=== PATIENT | female | born 1975 | race Caucasian/White ===

== ENCOUNTER → 2017-08-25 08:48 | Outpatient (CLI) | payer BC, SELFPAY ==
[2017-08-25 12:37] LABS: Absolute Lymphocyte Count 1.68 X10^3/ul (0.83-4.51); Absolute Neutrophil Count 3.6 X10^3/uL (2.0-7.7); Basophil# 0.03 X10^3/uL; Basophil% 0.5 % (0-1); Eosinophil# 0.48 X10^3/uL; Eosinophils% 7.7 % (0-5); Hematocrit 38.8 % (37-47); Hemoglobin 12.8 g/dl (12.0-15.0); Lymphocyte # 1.68 X10^3/ul (4.0); Lymphocyte % 27.1 % (19-41); Mean Corpuscular Hgb 27.9 pg (27.0-32.0); Mean Corpuscular Volume 84.5 fL (81-99); Mean Platelet Vol. 10.8 fl (6.2-12.0); Monocyte# 0.42 X10^3/uL; Monocyte% 6.8 % (0-10); Neutrophil # 3.58 X10^3/uL (2.7-7.7); Neutrophil % 57.7 % (47-70); Platelet Count 219 K/mm3 (150-450); RBC Distribution Width CV 12.8 % (11.6-14.6); RBC Distribution Width SD 39.2 fl (35.1-43.9); Red Blood Count 4.59 M/mm3 (4.2-5.4); White Blood Count 6.2 K/mm3 (4.4-11.0)
[2017-08-25 12:40] LABS: POSITIVE COUNT NO; POSITIVE DIFFERENTIAL NO; POSITIVE MORPHOLOGY NO
[2017-08-25 12:56] LABS: Vitamin B12 814 pg/mL (211-911); Vitamin D,25 Hydroxy 34.3 ng/mL (29.95-100.01)
[2017-08-25 12:59] LABS: ALB/GLOB Ratio 0.8 RATIO (0.9-2.4); AST(SGOT) 22 U/L (15-37); Alanine Aminotransfer ALT/SGPT 31 U/L (13-56); Albumin, Serum 3.2 g/dL (3.2-5.0); Alkaline Phosphatase 51 U/L (45-117); Anion Gap 8 (5-15); BUN 12 mg/dL (7-18); BUN/Creat Ratio 11.9 RATIO (10-20); Calcium,Total 8.7 mg/dL (8.5-10.1); Chloride 103 mmol/L (98-107); Cholesterol 156 mg/dL (200); Creatinine, Serum 1.01 mg/dL (0.55-1.02); EST Glomerular Filtration Rate 64 mL/min (>60); Est Glom Filt Rate - Afr Amer 78 mL/min (>60); Globulin 3.8 g/dL (2.2-4.2); Glucose 89 mg/dL (74-106); High Density Lipoprotein 55 mg/dL; Potassium 4.1 mmol/L (3.5-5.1); Sodium Level 139 mmol/L (136-145); T4 Free Direct 1.07 ng/dL (0.76-1.46); Thyroid Stim Hormone (TSH) 2.92 uIU/mL (0.358-3.74); Triglycerides 103 mg/dL; Very Low Density Lipoprotein 21 mg/dL (5-40)
== END ==
PROVIDERS: Family Provider Family Medicine; PCP Family Medicine; Visit Provider Family Medicine
DX: Z00.00 Encounter for general adult medical examination without abnormal findings (principal); E78.5 Hyperlipidemia, unspecified; E55.9 Vitamin D deficiency, unspecified; E53.8 Deficiency of other specified B group vitamins; R53.83 Other fatigue
CPT/HCPCS: 36415; 80053; 80061; 82306; 82607; 84439; 84443; 85025

== ENCOUNTER → 2018-03-10 11:45 | Outpatient (CLI) | payer BC, SELFPAY ==
--- NOTE | 2018-03-10 11:48 | BI_ITS ---
MAMMOGRAPHY - BILATERAL SCREENING REASON FOR EXAM: Female, 42 years old. Routine annual screening examination. PERTINENT HISTORY: Mother with breast cancer. Aunt with breast cancer. TECHNIQUE: Digital bilateral breast piotr (3D mammographic acquisition) in the CC and MLO projections. 2-D mediolateral oblique (MLO) and craniocaudad (CC) views of both breasts were obtained. CAD: Full Field Digital Mammography with Computer Added Detection was performed. COMPARISON: Comparison is made with prior study dated March 05, 2017. FINDINGS: Breast Composition: The breasts are heterogeneously dense, which may obscure small masses. There are no dominant masses or suspicious calcifications. Stable small bilateral axillary lymph nodes. No other significant abnormalities are identified. There has been no significant change since the prior study. BI/SCREENING MAMM (CAD), BILAT IMPRESSION: Stable bilateral screening mammogram. Yearly follow-up mammogram recommended. (A) ASSESSMENT CATEGORY: BIRADS Category 2: Benign. A letter regarding these results will be sent to the patient by the facility within 30 days. Approximately 10% of breast cancers are not detected by mammography. A normal mammogram should not delay biopsy of a clinically suspicious abnormality. [id number] Electronically Signed: Rene Feldman MD at 12:51 EDT Tel [phone], Service support ,
== END ==
PROVIDERS: Family Provider Family Medicine; PCP Family Medicine; Visit Provider Obstetrics & Gynecology
DX: Z12.31 Encounter for screening mammogram for malignant neoplasm of breast (principal)
CPT/HCPCS: 77063; 77067

== ENCOUNTER → 2018-10-02 | Outpatient (CLI) | payer BC, SELFPAY ==
[2018-10-02 12:51] LABS: Absolute Neutrophil Count 3.9 X10^3/uL (2.0-7.7); Basophil# 0.06 X10^3/uL; Basophil% 0.9 % (0-1); Eosinophil# 0.36 X10^3/uL; Eosinophils% 5.4 % (0-5); Hematocrit 39.6 % (37-47); Lymphocyte % 28.7 % (19-41); Mean Corp Hgb Conc 32.8 g/gl (32-36); Mean Corpuscular Volume 85.3 fL (81-99); Mean Platelet Vol. 10.4 fl (6.2-12.0); Monocyte# 0.39 X10^3/uL; Monocyte% 5.9 % (0-10); Neutrophil # 3.92 X10^3/uL (2.7-7.7); Neutrophil % 59.1 % (47-70); Platelet Count 233 K/mm3 (150-450); RBC Distribution Width CV 12.5 % (11.6-14.6); RBC Distribution Width SD 38.7 fl (35.1-43.9); Red Blood Count 4.64 M/mm3 (4.2-5.4); White Blood Count 6.6 K/mm3 (4.4-11.0)
[2018-10-02 12:55] LABS: POSITIVE COUNT NO; POSITIVE DIFFERENTIAL NO; POSITIVE MORPHOLOGY NO
[2018-10-02 13:01] LABS: AST(SGOT) 24 U/L (15-37); Alanine Aminotransfer ALT/SGPT 37 U/L (13-56); Albumin, Serum 3.5 g/dL (3.2-5.0); Alkaline Phosphatase 59 U/L (45-117); Anion Gap 5 (5-15); BUN 18 mg/dL (7-18); BUN/Creat Ratio 17.3 RATIO (10-20); Calcium,Total 8.6 mg/dL (8.5-10.1); Chloride 107 mmol/L (98-107); Cholesterol 158 mg/dL (200); Creatinine, Serum 1.04 mg/dL (0.55-1.02); EST Glomerular Filtration Rate 62 mL/min (>60); Est Glom Filt Rate - Afr Amer 75 mL/min (>60); Globulin 3.5 g/dL (2.2-4.2); Glucose 82 mg/dL (74-106); High Density Lipoprotein 70 mg/dL; Potassium 4.2 mmol/L (3.5-5.1); Sodium Level 140 mmol/L (136-145); Triglycerides 81 mg/dL; Very Low Density Lipoprotein 16 mg/dL (5-40)
[2018-10-02 13:10] LABS: Vitamin B12 751 pg/mL (211-911); Vitamin D,25 Hydroxy 24.9 ng/mL (29.95-100.01)
== END | disposition home or self-care (01) ==
LOC: LAB.FUTURE 10:05
PROVIDERS: Family Provider Family Medicine; PCP Family Medicine; Visit Provider Family Medicine
DX: Z00.00 Encounter for general adult medical examination without abnormal findings (principal); E53.8 Deficiency of other specified B group vitamins; E55.9 Vitamin D deficiency, unspecified
CPT/HCPCS: 36415; 80053; 80061; 82306; 82607; 85025

== ENCOUNTER → 2018-12-25 | Outpatient (CLI) | payer BC, SELFPAY ==
[2019-01-01 12:39] LABS: HPV Reflexed? NOT INDICATED
== END | disposition home or self-care (01) ==
LOC: LABSPEC 13:31
PROVIDERS: Visit Provider Obstetrics & Gynecology
DX: Z12.4 Encounter for screening for malignant neoplasm of cervix (principal)
CPT/HCPCS: 88175; G0145

== ENCOUNTER 2019-03-01 06:20 | Day surgery (SDC) | payer BC, SELFPAY ==
--- NOTE | 2019-02-24 15:39 | EKG12_ITS ---
Test Reason : Blood Pressure : / mmHG Vent. Rate : 081 BPM Atrial Rate : 079 BPM P-R Int : 142 ms QRS Dur : 092 ms QT Int : 374 ms P-R-T Axes : 052 038 033 degrees QTc Int : 434 ms Normal sinus rhythm with sinus arrhythmia Low voltage QRS Borderline ECG Confirmed by KIM PAZ [id number]), telegraph editor ZIGGY ACOSTA ([id number]) on 03/01/2019 2:02:52 PM Referred By: Ross Owusu Confirmed By:KIM PAZ
[2019-02-24 16:20] LABS: Hematocrit 38.9 % (37-47); Hemoglobin 13.2 g/dL (12.0-15.0); Mean Corp Hgb Conc 33.9 g/dL (32-36); Mean Corpuscular Hgb 28.5 pg (27.0-32.0); Mean Platelet Vol. 10.3 fl (6.2-12.0); Platelet Count 244 K/mm3 (150-450); RBC Distribution Width CV 11.9 % (11.6-14.6); RBC Distribution Width SD 35.9 fl (35.1-43.9); Red Blood Count 4.63 M/mm3 (4.2-5.4); White Blood Count 7.8 K/mm3 (4.4-11.0)
[2019-02-24 16:22] LABS: Prothrombin Time (Protime)PT. 13.4 SECONDS (11.7-14.9)
[2019-02-24 16:23] LABS: Partial Thromboplast Time 25.5 Seconds (24.1-36.2)
[2019-02-24 17:21] LABS: AST(SGOT) 27 U/L (15-37); Alanine Aminotransfer ALT/SGPT 50 U/L (13-56); Albumin, Serum 3.5 g/dL (3.2-5.0); Alkaline Phosphatase 54 U/L (45-117); Bilirubin, Direct 0.11 mg/dL (0.00-0.30); Creatinine, Serum 1.12 mg/dL (0.55-1.02); EST Glomerular Filtration Rate 57 mL/min (>60); Est Glom Filt Rate - Afr Amer 68 mL/min (>60); Globulin 3.5 g/dL (2.2-4.2)
--- NOTE | 2019-02-28 16:02 | HP.PCM_ITS ---
History and Physical Date of Admission: 03/01/19 Surgical History and Physical Jasmyn Crowder, a 43 year old female 2 0 0 0 2, presents for Robotic hysterectomy and bilateral salpingo-oophrectomy on March 01, 2019 at 11:15. -- Dysmenorrhea, Pelvic Pain -- Menses continue to be heavy and painful. Tried OCPs which do not help. Discussed option for Implanon or progesterone only method and she is not interested in any of these methods. Pelvic ultrasound is normal. UTERUS: 8 x 4.7 x 4.9 cm. Prominent scar along lower uterine segment (able to see prior uterine incision on sono;ENDOMETRIAL ECHO: 3 mm; R OVARY: 2.1 x 1.7 x 1.8 cm.;L OVARY: 2.4 x 1.5 x 1.7 cm. After L/S menses still really miserable. She just does not know what to do. Menses painful and feels pressure. She also states intercourse is painful. She is concerned with the pain and the irregular periods. Dysmenorrhea which began months ago. It occurs intercourse, menses. It is located in the vagina.; It is located in the Left Lower Back Pain. Jasmyn characterizes the quality cramping.; Jasmyn characterizes the quality sharp.; Jasmyn characterizes the quality stabbing. Severity is severe; It is aggravated by menses; It is aggravated by intercourse. MEDICATIONS HISTORY: Current medications prescribed by our practice are: 1. PRIYANKA (28) 3 mg-0.02 mg tablet, 1 daily Patient is also takin. buspirone 10 mg tablet 2. Wellbutrin XL 150 mg 24 hr tablet, extended release, bid ALLERGIES: penicillin G potassium, erythromycin, Erythromycin Base, Generalized rash, Doxycycline, Vomiting, Bactrim and Stomach ache Infections - Chicken pox Illnesses - depression/stress Accidents - no injuries of consequence Hospitalizations - Childbirth Review of Systems: GENERAL - Denies fever, or chills SKIN - Denies skin changes EYES - Denies visual changes EARS - Denies difficulty hearing NOSE - Denies nasal congestion or bleeding MOUTH - Denies sore throat or difficulty swallowing NECK - Denies pain or swelling RESPIRATORY - Denies shortness of breath or wheezing CARDIOVASCULAR - Denies palpitations or chest pain GASTROINTESTINAL - Denies nausea, vomiting, diarrhea, constipation GENITOURINARY - Denies dysuria, frequency of urination, incontinence of urine MUSCULOSKELETAL - Denies joint or muscle pain NEUROLOGICAL - Denies localized numbness or weakness PSYCHIATRIC - Denies depression or anxiety ENDOCRINE - Denies heat or cold intolerance, weight loss or gain HEMATO-IMMUNOLOGIC - Denies excessive bleeding with cuts SOCIAL HISTORY: Alcohol Use - denies use Smoking - denies use Diet - no special diet Lifestyle - high stress lifestyle Exercise - none Seat Belt Use - always Employer - [employer] Job Description - [employer] Illicit Drug Use - denies use of street drugs Sexual Activity - but not much x2 q month Residence - owns a home Place of - [facility] Hours Worked - 40 hours per week Spouse-Sig Other Name - Garrett Spouse-Sig Other Occupation - Inspector Aide, [employer] Children Name(s) - cydney knowlesob Control - BTO FAMILY HISTORY: Family history of Cervical cancer and DM II. Paternal Grandfather: Heart Disease and Hypertension. Maternal Aunt: hysterectomy for cervical cancer. MENSTRUAL HISTORY: LMP Known?- Irregular cycles Amount/Duration - 7-10 days, Regularity - irregular, Frequency - variable days, LMP - 02/01/19, Age Onset Menarche - 14 PAST PREGNANCIES: Total Pregnancies - 2; Full Term Pregnancies - 2; Premature - 0; Abortions, Induced - 0; Abortions, Spontaneous - 0; Ectopics - 0; Multiple Births - 0; Living Children - 2 SURGICAL HISTORY: 1. , 1996 2. 05/22/2000 ; Jacqui Saldivar M.D. 3. 07/17/2003 Carpal Tunnel surgery R and L 4. 04/28/2012 dx laparoscopy, Lap BTO, Lysis of adhesions ; Jacqui Saldivar M.D. PHYSICAL EXAM BP- 120/80 Sitting, Right arm, large cuff Temp- 99.3 Taken Orally Weight- 211.57035 lbs Height- 62.00 inch BMI:38.71 CONSTITUTIONAL - NAD, well nourished, and well developed HEENT - Normocephalic, PERRLA, EOMI NECK - no nuchal rigidity LUNGS - clear to auscultation CARDIAC - normal s1, normal s2, no s3 BREAST - no dominant masses, no tenderness, no axillary adenopathy, no nipple discharge and no skin changes ABDOMEN - no masses, no tenderness EXTREMITIES - No edema or calf tenderness NEUROLOGICAL - Cranial nerves II-XII grossly intact PSYCHIATRIC - A and O to time, place, person, mood and affect External Genital Vagina - non-tender without lesions Urethra/Urethral Meatus - non-tender Bladder - non-tender Vagina - no palpable lesions and pain on palpation Cervix - without cervical motion tenderness and has normal size and features without evident lesions Uterus - normal size, mobile and tenderness Adnexa - clear without massess or tenderness ASSESSMENT/PLAN: Dysmenorrhea (Painful Menses), Pelvic And Perineal Pain, Pelvic Pain and Unspec Continued pain on Priyanka. Reviewed diff dx and offered hysterectomy for persistent pelvic pain unresponsive to OCP, trial of medical suppression of pain; Prior L/S neg for endometriosis. Suspect adenomyosis as source of central pelvic pain worse around time of period, but present throughout month. May consider trial of DepoLupron: declines this. Prior C/S deliveries. Advised of options for surgery: HARSHAL vs robotic assisted vaginal hysterectomy. Recommended Robotic hysterectomy for better, less painful recovery. [employer] Brochure given to read and consider. She is ready now to proceed with Robotic hysterectomy. Prior BTO for contraception. Plan RAVH/BSO. Discussed RBAs including need for HRT ongoing and all questions answered.
[2019-03-01] VITALS (14 sets, daily range): BP systolic 103–133; BP diastolic 65–91; PULSE 71–91; RESP 16–18; TEMP 36–37.2; O2SAT 95–100; BMI 36.8
[2019-03-01 06:46] LABS: Internal QC Validated? YES +Cl - CLEAR BKGD; Pregnancy, Urine Negative Negative
[2019-03-01] MEDS: Lactated Ringers 1,000 ML 100 ML IV ×3 (07:00→13:40)
--- NOTE | 2019-03-01 08:30 | HYST_PTH ---
PATIENT: TERRELL BARTH LOC: [facility] [place] U#:[id number] AGE/SX: 43/F ROOM: RE03/01/[address]: Dr. Ross Owusu MD : [id number] BED: DIS: 03/02/2019 SPEC #: [id number] RECD: 03/01/19 13:58 STATUS: LATIA REShruthi #: [id number] TRISH: 03/01/19 08:[address]: Ross Owusu DEPT: SURGICAL PATHOLOGY RECD BY: Robert Remy ENTERED: 03/01/19 14:07 SP TYPE: HYSTERECT OTHR DR: Dr. Brendon Murphy, DO Tissues: Uterus, NOS Procedures: Surgery Specimen Level V HEADER OPERATION: Robotic-assisted vaginal hysterectomy, right salpingo-oophorectomy PRE-OP DIAGNOSIS: Dysmenorrhea and pelvic pain TISSUE SUBMITTED: Uterus, cervix, bilateral fallopian tubes, right ovary MICROSCOPIC DIAGNOSIS Uterus, hysterectomy: Cervix - mild chronic inflammation. Endometrium - weakly proliferative endometrium. Myometrium - adenomyosis and leiomyoma. Right fallopian tube - no pathologic change. Left fallopian tube - tubo-ovarian adhesions and paratubal cyst. Left ovary - follicular cysts and corpora albicantia. AM:josselin 03/02/19 MICROSCOPIC DESCRIPTION Slides are reviewed. GROSS DESCRIPTION Received in fixative is one container labeled with the patient's name and designated uterus. The specimen consists of a uterus with attached right and left fallopian tubes and left ovary. The uterus with cervix measures 9 x 5 x 4.5 cm and weighs 85 gm. The ectocervix is unremarkable. The cervical os is oval in contour. The endocervical canal measures 4.5 cm in length and is grossly unremarkable. The triangular endometrial cavity measures 3.6 x 3.2 cm. The velvety, light clinton endometrium measures up to 0.2 cm in thickness. The myometrium measures 2 cm in average thickness and contains a clinton subserosal nodule measuring 0.6 cm and grossly consistent with leiomyoma. The right fallopian tube measures 5.5 cm in length and 0.5 cm in average diameter. A normal fimbriated end is present. A Filshie type clip is noted to be intact. The left fallopian tube is similar in appearance measuring 4 x 0.5 cm. It is adherent to the smooth glistening pink-clinton ovary measuring 2.5 x 2 x 1.5 cm. Pest Control Supervisor sections are submitted in nine cassettes as follows: 1 - anterior cervix, 2 - posterior cervix, 3 & 4 - anterior uterine wall, 5 & 6 - posterior uterine wall (#6 has myometrial nodule), 7 - right fallopian tube, 8 & 9 - left ovary and adherent fallopian tube. / AM:josselin 03/01/19 TC:5 CPT: 21982
--- NOTE | 2019-03-01 09:10 | PCM.OPRPT ---
Report of Operation Date of Procedure: 03/01/19 Pre-Operative Diagnosis: Dysmenorrhea and Pelvic Pain Post-Operative Diagnosis: Dysmenorrhea and Pelvic Pain Surgery/Procedure Performed:: Robotic Assisted Vaginal Hysterectomy, Right Salpingo-Oophorectomy, Left Salpingectomy Description of Surgical Findings:: Inflamed 8 cm uterus with normal-appearing fallopian tubes and ovaries senior security engineer: Julian Moyer Type of Anesthesia:: General - Endotracheal Anesthesiologist: Komal Cornell Specimen's removed: Uterus, right fallopian tube and ovary, left fallopian tube Drains: Schilling to straight drain Estimated Blood Loss (mL): Minimal Fluids Replaced: Crystalloid Description of Procedure: Surgeon: Ross Owusu MD, FACOG Indication: This is a 43 year old patient who has been having problems with dysmenorrhea and pelvic pain. Extensive conservative measures have not been helpful. The patient has been counseled regarding the risks, benefits and alternatives of this procedure including the possibility of bleeding, infection, and injury to surrounding structures such as bowel bladder and all questions were answered. She understands that if BSO is needed that she will need to be on HRT for an indefinite period of time. Procedure: Pt taken to the operating room where, after induction of general anesthesia, the patient was prepped and draped in the usual sterile fashion and placed on a non-slip Huggy-u-vac device. Trendelenburg test was satisfactory. Bladder was drained of urine with a Schilling catheter which was left in place. Anterior cervix grasped and cervix was dilated to about 3-4 mm. Uterus sounded to 8 cms. 0-Vicryl suture was placed at the 3:00 and 9:00 position of the cervix. A small Advincula Mutuel Department Manager Uterine Manipulator was then placed in the uterus and attention was turned to the laparoscopic portion of the procedure. Ropivocaine 0.5% was injected approximately 2-3 cm superior to the umbilicus and an 8 mm robotic camera port was introduced directly with intraperitoneal placement confirmed with CO2 insufflation. 8 mm robotic side ports were introduced under direct visualization approximately 10-11 cm lateral and 2 cm inferior to the umbilical port. A 5 mm left upper quadrant port was introduced and airseal insufflation with CO2 was started. The above findings were noted. Robot was docked without difficulty and attention turned to the robotic portion of the procedure. Approximately 30 cc of Ropivicaine was used. Right infundibulopelvic ligaments and left mesosalpinx were ligated with 35 vann bipolar coagulation to the level of the round ligament. The posterior aspect of the cervix was identified and then opened for about 1 cm using 25 watt monopolar cautery identifying the uterine manipulating device which had been placed vaginally. Bladder flap was opened and divided to the level of the round ligaments using monopolar cautery. Progressive bites were then ligated on each side of the cervix with 35 vann bipolar cautery to the uterine arteries. The anterior vaginal mucosa was entered and cervix circumscribed with monopolar cautery. Uterus and attached tubes and right ovary were removed through the vagina. Vaginal cuff was closed first with 0-Vicryl Christopher stitches placed at each angle followed by closure of the mid-cuff with 0-Monocryl V-lock suture in two layers. Pelvis was copiously irrigated with saline and the right ureter was noted to peristalse. Robot was undocked and trocars were removed with as much gas as possible. Incisions were closed with 4-0 Monocryl subcuticular sutures and incisions covered with steri-strips. The patient tolerated the procedure well and was taken to the recovery room in satisfactory condition. Sponge, instruments and needle counts were all correct. There were no apparent complications of the surgery. Ancef 2 gms IV was given prior to the procedure. Estimated Blood Loss: Minimal Specimen to Pathology: Uterus and right fallopian tube and ovary and left fallopian tube Grafts/Implants Used: None - Complications None - Admit VTE Documentation VTE Present on Admission: Yes VTE Mechan Device Prophylaxis: SCD's VTE Pharm Prophylaxis ordered?: Yes
[2019-03-01] MEDS: Cefazolin 2 GM in 0.9% Normal Saline 100 ML IV (09:14)
--- NOTE | 2019-03-01 09:15 | DCINST_ITS ---
Discharge Diet: No Restrictions Discharge Activity: Return to Normal Activity, May Not Drive - while taking narcotic pain medications., May Shower, May Take a Tub Bath May resume sexual activity in: 6-8 weeks Call your doctor if your incision/area has: Continuous Slow Oozing, Sudden Inc reased Bleeding, Increased Pain/ Swelling, Increased Redness, Foul Smelling Discharge Call your doctor if you observe: Fever of 101 or Higher, Inability to urinate, Inability to have a bowel movement, Using more than one pad per hour Allergies/Adverse Reactions: Allergies erythromycin base [From E.E.S.] Allergy (Verified 03/01/19 06:44) Rash Penicillins Allergy (Verified 03/01/19 06:44) Rash acetaminophen [From Vicodin] Adverse Reaction (Verified 03/01/19 06:44) Nausea/Vom/Diarrhea doxycycline Adverse Reaction (Verified 03/01/19 06:44) Nausea/Vom/Diarrhea hydrocodone [From Vicodin] Adverse Reaction (Verified 03/01/19 06:44) Nausea/Vom/Diarrhea Medications to take at Discharge Cetirizine HCl [Zyrtec] 10 mg PO DAILY 02/22/19 Cholecalciferol (Vitamin D3) [Vitamin D3] 2,000 unit PO DAILY 02/22/19 Cyanocobalamin (Vitamin B-12) [Vitamin B-12] 1,000 mcg PO DAILY 02/22/19 buPROPion XL [Wellbutrin Xl] 150 mg PO BID 02/22/19 busPIRone [Buspar] 7.5 mg PO BID 02/22/19 Docusate Sodium [Colace] 100 mg PO BID PRN PRN #60 cap 03/01/19 Oxycodone [Oxyir] 5 mg PO Q6H PRN PRN 7 Days #20 tab 03/01/19 The following prescriptions were given: Docusate Sodium [Colace] 100 mg PO BID PRN PRN #60 cap PRN Reason: Constipation Prescription Printed Oxycodone [Oxyir] 5 mg PO Q6H PRN PRN 7 Days #20 tab PRN Reason: Severe Pain (6-10/10) Prescription Printed Primary Care Physician: Brendon Murphy DO [Primary Care Provider] - Test Results: Test results from this visit will be discussed in further detail at your follow- up appointment, if applicable. Please Follow Up With: Ross Owusu MD When: 2 to 3 weeks
[2019-03-01] MEDS: Lubricating Jelly 60 GM Tube 30 GM TOPICAL (09:23)
[2019-03-01] MEDS: Ropivacaine 0.5% 30 ML Vial (09:45)
[2019-03-01] MEDS: Dextrose 5%-Lactated Ringers 1,000 ML 150 ML IV ×2 (14:37→21:54)
[2019-03-01] MEDS: Ketorolac 30 MG/ML Syringe IV ×2 (14:38→17:51)
[2019-03-01] MEDS: 0.9% NaCl Peripheral Flush Adult/Peds IV ×2 (14:39→17:51)
[2019-03-01] MEDS: busPIRone 15 MG TABLET 7.5 MG PO ×2 (14:41→21:14)
[2019-03-01] MEDS: Loratadine 10 MG Tablet PO (14:42)
[2019-03-01] MEDS: Cefazolin 1 GM/50 ML BAG IV (17:51)
[2019-03-01] MEDS: oxyCODONE 5 MG Tablet PO ×2 (18:02→22:13)
[2019-03-01] MEDS: Enoxaparin 30 MG/0.3 ML Syringe SC (18:02)
[2019-03-02] MEDS: Ketorolac 30 MG/ML Syringe IV ×3 (00:08→11:48)
[2019-03-02 02:05] VITALS: BP 112/71; PULSE 81; RESP 16; TEMP 36.9; O2SAT 99
[2019-03-02] MEDS: oxyCODONE 5 MG Tablet PO (02:15)
[2019-03-02] MEDS: Cefazolin 1 GM/50 ML BAG IV (02:16)
[2019-03-02] MEDS: Dextrose 5%-Lactated Ringers 1,000 ML 150 ML IV (04:52)
[2019-03-02 05:53] LABS: Hematocrit 33.8 % (37-47); Hemoglobin 11.4 g/dL (12.0-15.0); Mean Corp Hgb Conc 33.7 g/dL (32-36); Mean Corpuscular Hgb 28.9 pg (27.0-32.0); Mean Corpuscular Volume 85.6 fL (81-99); Mean Platelet Vol. 10.7 fl (6.2-12.0); Platelet Count 203 K/mm3 (150-450); RBC Distribution Width CV 11.9 % (11.6-14.6); RBC Distribution Width SD 36.5 fl (35.1-43.9); Red Blood Count 3.95 M/mm3 (4.2-5.4); White Blood Count 11.3 K/mm3 (4.4-11.0)
[2019-03-02 06:09] LABS: Creatinine, Serum 0.97 mg/dL (0.55-1.02); EST Glomerular Filtration Rate 67 mL/min (>60); Est Glom Filt Rate - Afr Amer 81 mL/min (>60)
--- NOTE | 2019-03-02 06:45 | PCM.PN.OB ---
Subjective: Patient without complaints. Tolerating diet well. Denies flatus. Pain well controlled. Minimal vaginal bleeding reported. - Physical Exam Vital Signs Temp Pulse Resp BP Pulse Ox 98.4 F 81 16 112/71 99 03/02/19 02:05 03/02/19 02:05 03/02/19 02:05 03/02/19 02:05 03/02/19 02:05 Oxygen Delivery Method Room Air Weight: 207 lb 14.334 oz Body Mass Index (BMI) 36.8 Intake and Output for Last 24 Hours 02/28/19 03/01/19 03/02/19 23:59 23:59 23:59 Intake Total 3401.67 / 3701.67 1592.5 / 1592.5 Output Total 1245 / 1695 1150 / 1150 Balance 2156.67 / 2006.67 442.5 / 442.5 Laboratory Tests Past 24 Hrs 03/01/19 03/02/19 03/02/19 06:33 05:10 05:10 WBC 11.3 H RBC 3.95 L Hgb 11.4 L Hct 33.8 L MCV 85.6 MCH 28.9 MCHC 33.7 RDW Std Deviation 36.5 RDW Coeff of Meggan 11.9 Plt Count 203 MPV 10.7 Creatinine 0.97 Estim Creat Clear Calc 62.50 Est GFR (MDRD) Af Amer 81 Est GFR (MDRD) Non-Af 67 Urine Test Negative Wounds are clean, dry, intact. Good urine output. Hemoglobin and creatinine okay. Medical Necessity - Tobacco Use Smoking Status: Never smoker Tobacco Use: Non-smoker Assessment/Plan Doing well postoperative day #1 status post robotic assisted vaginal hysterectomy and right salpingo-oophorectomy and left salpingectomy. Will discharge to home later today. Home-going instructions given.
[2019-03-02 07:44] VITALS: O2SAT 98
[2019-03-02 09:00] VITALS: BP 109/73; PULSE 70; RESP 18; TEMP 36.7; O2SAT 100
[2019-03-02] MEDS: busPIRone 15 MG TABLET 7.5 MG PO (09:46)
[2019-03-02] MEDS: Loratadine 10 MG Tablet PO (09:46)
[2019-03-02] MEDS: Acetaminophen 500 MG Tablet 1000 MG PO (10:03)
== END 2019-03-02 12:05 | disposition home or self-care (01) ==
LOC: SDC 06:23 → AC 06:23 → MS3 08:54
PROVIDERS: Anesthesiology; Family Provider Family Medicine; PCP Family Medicine; Referring Provider Obstetrics & Gynecology; Visit Provider Obstetrics & Gynecology
PROC: 0UT90ZZ Resection of Uterus, Open Approach (ICD-10-PCS; CPT 58552; principal; 2019-03-01 08:10)
DX: N72 Inflammatory disease of cervix uteri (principal); N80.0 Endometriosis of uterus; D25.9 Leiomyoma of uterus, unspecified; N83.8 Other noninflammatory disorders of ovary, fallopian tube and broad ligament; N73.6 Female pelvic peritoneal adhesions (postinfective); N83.02 Follicular cyst of left ovary; N83.292 Other ovarian cyst, left side; F41.9 Anxiety disorder, unspecified; F32.9 Major depressive disorder, single episode, unspecified; G47.30 Sleep apnea, unspecified; Z79.899 Other long term (current) drug therapy
CPT/HCPCS: 58552; 36415; 80076; 81025; 82565; 85027; 85610; 85730; 86850; 86900; 86901; 88307; 93005; J7120; A4216; J2405

== ENCOUNTER → 2019-04-07 | Outpatient (CLI) | payer BC, SELFPAY ==
[2019-03-01 14:00] VITALS: BMI 36.8
--- NOTE | 2019-04-07 15:15 | BI_ITS ---
MAMMOGRAPHY - BILATERAL SCREENING REASON FOR EXAM: Female, 43 years old. Routine annual screening examination. PERTINENT HISTORY: Mother with breast cancer. Aunt with breast cancer. TECHNIQUE: Digital bilateral breast harley (3D mammographic acquisition) in the CC and MLO projections. 2-D mediolateral oblique (MLO) and craniocaudad (CC) views of both breasts were obtained. CAD: Full Field Digital Mammography with Computer Added Detection was performed. COMPARISON: Comparison is made with prior examination of March 10, 2018 and March 05, 2017. FINDINGS: Breast Composition: The breasts are heterogeneously dense, which may obscure small masses. There are no dominant masses or suspicious calcifications. No other significant abnormalities are identified. There has been no significant change since the prior study. BI/SCREEN MAMM (CAD) W/HARLEY BILAT IMPRESSION: Stable bilateral screening mammogram. Yearly follow-up mammogram recommended. (A) ASSESSMENT CATEGORY: BIRADS Category 1: Negative. A letter regarding these results will be sent to the patient by the facility within 30 days. Approximately 10% of breast cancers are not detected by mammography. A normal mammogram should not delay biopsy of a clinically suspicious abnormality. [id number] Electronically Signed: Rene Feldman, at 8:27 EDT , Service support ,
== END | disposition home or self-care (01) ==
LOC: OPBI 15:13
PROVIDERS: Family Provider Family Medicine; PCP Family Medicine; Referring Provider Obstetrics & Gynecology; Visit Provider Obstetrics & Gynecology
DX: Z12.31 Encounter for screening mammogram for malignant neoplasm of breast (principal)
CPT/HCPCS: 77063; 77067